=== PATIENT | female | born 1945 | race Caucasian/White ===

== ENCOUNTER 2020-05-28 08:22 | Day surgery (SDC) | payer MEDICARE, OTHER ==
[~2020-05-28] VITALS: Ht 165.1 cm; Wt 76.9 kg
[2020-05-28] VITALS (16 sets, daily range): BP systolic 98–164; BP diastolic 53–89
[~2020-05-28 08:22] MED LIST: CARV25TA PO; CLOP75TA15 PO
[2020-05-28] MEDS ORDERED: normal saline 1000ml 1,000 ML IV PRN (08:50)
[2020-05-28 09:07] LABS: BASOPHILS % (AUTO) 0.7 % (0-1); EOSINOPHILS % (AUTO) 0.6 % (0-6); HEMATOCRIT 37.3 % (35.0-45.0); HEMOGLOBIN 12.4 g/dl (12.0-16.0); LYMPHOCYTES # (AUTO) 0.8 X10'3 (1.1-4.8); LYMPHOCYTES % (AUTO) 15.9 % (21-51); MEAN CORPUSCULAR HEMOGLOBIN 31.8 PG (27.0-31.0); MEAN CORPUSCULAR HGB CONC 33.2 g/dL (33.0-36.5); MEAN CORPUSCULAR VOLUME 95.7 FL (78-98); MEAN PLATELET VOLUME 7.3 FL (7.4-10.4); MONOCYTES # (AUTO) 0.4 X10'3 (0-0.9); MONOCYTES % (AUTO) 8.2 % (2-12); NEUTROPHILS # (AUTO) 3.8 X10'3 (1.8-7.7); NEUTROPHILS % (AUTO) 74.6 % (42-75); PLATELET COUNT 139 X10'3 (140-440); RED BLOOD COUNT 3.89 X10'6 (4.20-5.60); RED CELL DISTRIBUTION WIDTH 14.5 % (11.5-14.5)
[2020-05-28] MEDS ORDERED: ATOR10TA PO (09:34)
[2020-05-28] MEDS ORDERED: fentaNYL/PF 50MCG/1 ML 2ML syringe ONE (09:37)
[2020-05-28] MEDS ORDERED: midazolam 2 mg/2 ml injection ONE (09:37)
[2020-05-28] MEDS ORDERED: gelatin sponge, absorbable (Gelfoam 12-7MM) sponge TP ONE (10:03)
[2020-05-28] MEDS ORDERED: HYDROcodone/acetaminophen 5mg/325mg tablet PO PRN ×2 (10:25)
== END 2020-05-28 14:40 | disposition home or self-care (01) ==
LOC: SSTAY O 08:22
PROVIDERS: ATTEND Radiology Vascular & Interventional Radiology
DX: K76.89 Other specified diseases of liver (principal); R91.8 Other nonspecific abnormal finding of lung field; M06.9 Rheumatoid arthritis, unspecified; Z20.822 Contact with and (suspected) exposure to COVID-19; Z87.891 Personal history of nicotine dependence; Z88.2 Allergy status to sulfonamides; Z88.8 Allergy status to other drugs, medicaments and biological substances; Z79.899 Other long term (current) drug therapy; Z90.49 Acquired absence of other specified parts of digestive tract; Z90.710 Acquired absence of both cervix and uterus; Z79.01 Long term (current) use of anticoagulants; Z85.42 Personal history of malignant neoplasm of other parts of uterus
CPT/HCPCS: 36415; 47000; 76942; 85025; 85610; 87635; 99152; 99153; J2250; J3010

== ENCOUNTER 2020-06-10 08:18 | Day surgery (SDC) | payer MEDICARE, OTHER ==
[2020-06-10] VITALS (14 sets, daily range): BP systolic 89–128; BP diastolic 51–69
[~2020-06-10] VITALS: Ht 165.1 cm; Wt 77.6 kg
[~2020-06-10 08:18] MED LIST changes: +ATOR10TA PO
[2020-06-10] MEDS ORDERED: normal saline 1000ml 1,000 ML IV PRN (08:50)
[2020-06-10] MEDS ORDERED: albumin 25% 100mL bottle x 1 IV PRN (08:50)
[2020-06-10] MEDS ORDERED: OXYC10TA47 PO (09:18)
[2020-06-10] MEDS ORDERED: fentaNYL/PF 50MCG/1 ML 2ML syringe ONE (10:59)
[2020-06-10] MEDS ORDERED: midazolam 2 mg/2 ml injection ONE (10:59)
[2020-06-10] MEDS ORDERED: gelatin sponge, absorbable (Gelfoam 12-7MM) sponge TP ONE (11:08)
[2020-06-10] MEDS ORDERED: normal saline 1000ml 1,000 ML IV SCH (12:00)
[2020-06-10] MEDS ORDERED: oxyCODONE IR 5mg (immed. release) tablet PO ONE (13:30)
== END 2020-06-10 14:17 | disposition home or self-care (01) ==
LOC: SSTAY O 08:18
PROVIDERS: ATTEND Radiology Vascular & Interventional Radiology
DX: K76.89 Other specified diseases of liver (principal); C7B.02 Secondary carcinoid tumors of liver; I10 Essential (primary) hypertension; E66.9 Obesity, unspecified; Z68.28 Body mass index [BMI] 28.0-28.9, adult; Z85.42 Personal history of malignant neoplasm of other parts of uterus; Z90.49 Acquired absence of other specified parts of digestive tract; Z90.710 Acquired absence of both cervix and uterus; Z98.890 Other specified postprocedural states; Z98.49 Cataract extraction status, unspecified eye; Z88.8 Allergy status to other drugs, medicaments and biological substances; Z88.2 Allergy status to sulfonamides; Z79.899 Other long term (current) drug therapy; Z79.01 Long term (current) use of anticoagulants; Z87.891 Personal history of nicotine dependence
CPT/HCPCS: 47000; 77012; 99152; 99153; J2250; J3010; J7030; 36415; 88305; 88341; 88342